=== PATIENT | female | born 1970 | race Caucasian/White ===

== ENCOUNTER 2022-06-04 08:23 | Outpatient (CLI) | payer BC, SELFPAY | END 2022-06-04 08:24 | disposition home or self-care (01) | LOC: OP CLINIC 08:25 | PROVIDERS: Visit Provider Surgery | DX: Z12.11 Encounter for screening for malignant neoplasm of colon (principal); K63.5 Polyp of colon | CPT/HCPCS: 45385; 88305; 99153; J2250; J3010 ==

== ENCOUNTER 2022-06-04 11:15 | Outpatient (CLI) | payer BC, SELFPAY ==
--- NOTE | 2022-06-04 13:00 | CRLHL7_ITS ---
For Patients: As a result of the Century Cures Act, medical imaging exams and procedure reports are released immediately into your electronic medical record. You may view this report before your referring provider. If you have questions, please contact your health care provider. BILATERAL SCREENING MAMMOGRAM WITH COMPUTER-AIDED DETECTION AND TOMOSYNTHESIS TECHNIQUE: CC, MLO and Implant-displaced views were obtained. These mammographic images have been obtained using full-field digital technique. These mammographic images were interpreted with the benefit of computer-aided detection. Breast Tomosynthesis was used in this interpretation. COMPARISON FILM: 02/21/21, 02/16/20, 07/29/17. FINDINGS: The breasts are heterogeneously dense, which may obscure small masses IMPRESSION: There is no radiographic evidence for malignancy. ASSESSMENT: BI-RADS Category 2: Benign RECOMMENDATION: Routine screening mammogram in 1 year. A lay language report of this examination will be provided to the patient. Beatriz Sanders M.D. Diagnostic/Breast Radiologist [email or web address] Transcribed: 11:59 [email or web address] [email or web address]/Dictated by: Beatriz Sanders MD @ 06/05/2022 8:22:00 AM (Electronically Signed)
== END 2022-06-04 11:16 | disposition home or self-care (01) ==
PROVIDERS: PCP Physician Assistant Medical; Visit Provider Physician Assistant Medical
DX: Z12.31 Encounter for screening mammogram for malignant neoplasm of breast (principal); R92.2 Inconclusive mammogram
CPT/HCPCS: 45385; 77063; 77067; 88305; 99153; J2250; J3010

== ENCOUNTER 2022-12-19 10:27 | Outpatient (CLI) | payer OTHER, SELFPAY | END 2022-12-19 10:28 | disposition home or self-care (01) | LOC: NFLDREF 12-21 05:54 | PROVIDERS: PCP Physician Assistant Medical; Referring Provider Physician Assistant Medical; Visit Provider Physician Assistant Medical | DX: N39.0 Urinary tract infection, site not specified (principal); N30.00 Acute cystitis without hematuria | CPT/HCPCS: 87086; 87186 ==

== ENCOUNTER 2023-06-06 08:56 | Outpatient (CLI) | payer OTHER, SELFPAY ==
[2023-06-06 15:34] LABS: Chlamydia DNA Amplified* NOT DETECTED (No Detected); GC DNA Amplified* NOT DETECTED (No Detected)
== END 2023-06-06 08:57 | disposition home or self-care (01) ==
PROVIDERS: PCP Physician Assistant Medical; Visit Provider Physician Assistant Medical
DX: Z00.00 Encounter for general adult medical examination without abnormal findings (principal); N89.8 Other specified noninflammatory disorders of vagina; E66.9 Obesity, unspecified; E78.5 Hyperlipidemia, unspecified; F41.9 Anxiety disorder, unspecified; Z13.0 Encounter for screening for diseases of the blood and blood-forming organs and certain disorders involving the immune mechanism; Z13.1 Encounter for screening for diabetes mellitus; Z13.6 Encounter for screening for cardiovascular disorders; Z13.21 Encounter for screening for nutritional disorder; Z11.59 Encounter for screening for other viral diseases; Z11.3 Encounter for screening for infections with a predominantly sexual mode of transmission
CPT/HCPCS: 80053; 80061; 82306; 83520; 84439; 84443; 84481; 86703; 86803; 87086; 87491; 87591

== ENCOUNTER 2023-06-10 14:42 | Outpatient (CLI) | payer OTHER, SELFPAY ==
--- NOTE | 2023-06-10 15:00 | US_ITS ---
Patient: LAVERNE NOGUERA Facility:?[facility] Patient ID:?[id number] Site Patient ID:?[id number]. Site :?1970 Study:?US-Abdomen RUQ-06/10/2023 3:31:10 PM Ordering Physician:?ANDREZ BALTAZAR Final Report: INDICATION: Elevated liver enzymes TECHNIQUE: Ultrasound abdomen limited. Sonographic images of the right upper quadrant were obtained using clemons-scale and color Doppler images. COMPARISON: None FINDINGS: Liver: Normal in size and echotexture. No masses. No intrahepatic biliary dilatation. Normal flow direction in the portal vein. Gallbladder: No stones or sludge. Normal wall thickness. No pericholecystic fluid. Common bile duct: 6 mm. Pancreas: Normal. Right kidney: Normal in size. Normal echotexture and cortex. No suspicious masses, stones, or hydronephrosis. Vasculature: Proximal abdominal aorta and IVC are normal. IMPRESSION: Unremarkable right upper quadrant ultrasound. Dictated by Domenic Mg MD @ 06/11/2023 10:35:55 AM Signed by:?Domenic Mg MD @06/11/2023 10:35:55 AM (Electronic Signature)
== END 2023-06-10 14:43 | disposition home or self-care (01) ==
PROVIDERS: PCP Physician Assistant Medical; Visit Provider Physician Assistant Medical
DX: R79.89 Other specified abnormal findings of blood chemistry (principal)
CPT/HCPCS: 76705

== ENCOUNTER 2023-06-26 14:39 | Outpatient (CLI) | payer OTHER, SELFPAY ==
--- NOTE | 2023-06-26 15:00 | MM_ITS ---
Patient: LAVERNE NOGUERA Facility:?[facility] Patient ID:?[id number] Site Patient ID:?[id number]. Site :?1970 Study:?XRay-Breast Bilateral 3D W/CAD-06/26/2023 3:13:00 PM Ordering Physician:?Coral Arriola Final Report: BILATERAL SCREENING MAMMOGRAM WITH COMPUTER-AIDED DETECTION TECHNIQUE: CC, MLO and Implant displaced views were obtained. These mammographic images have been obtained using full-field digital technique. These mammographic images were interpreted with the benefit of computer-aided detection. COMPARISON FILM: 06/04/22, 02/21/21, 02/16/20. FINDINGS: The breasts are heterogeneously dense, which may obscure small masses. IMPRESSION: There is no radiographic evidence for malignancy. ASSESSMENT: BI-RADS Category 2: Benign RECOMMENDATION: Routine screening mammogram in 1 year. A lay language report of this examination will be provided to the patient. Antonio Patrick M.D. Diagnostic Radiologist [email or web address] DSM/sp R& Transcribed: 1:13 p.m. SP/Dictated by: Antonio Patrick MD @ 06/27/2023 12:16:00 PM Signed by:?Antonio Patrick MD @06/27/2023 3:46:18 PM (Electronic Signature)
== END 2023-06-26 14:40 | disposition home or self-care (01) ==
LOC: MAMMO 14:39
PROVIDERS: PCP Physician Assistant Medical; Visit Provider Physician Assistant Medical
DX: Z12.31 Encounter for screening mammogram for malignant neoplasm of breast (principal); R92.2 Inconclusive mammogram
CPT/HCPCS: 77063; 77067

== ENCOUNTER 2023-08-20 14:58 | Outpatient (CLI) | payer OTHER, SELFPAY ==
--- OUTSIDE RECORDS SUMMARY | 2023-08-24 18:24 | XMS_ITS | Continuity of Care Document ---
Author Organization [address] [address] Insurance Providers Payer Plan Claims Address Claims Phone Policy Number Group Number Relation Employer Guarantor Name Guarantor Guarantor Address Guarantor Phone Blue Cross [id number] Blue Cross [id number] [id number] Self Lin Tiffanie Stan [address] [place] [address] [id number] CIGNA CIGNA tel:[phone] [id number] Self Lin Tiffanie tSan [address] [place] [address] [id number] Problems Condition ICD9 code ICD10 code SNOMED code Start Date End Date S tatus Cough, unspecified R05.9 Final Fever, unspecified R50.9 Final Cough, unspecified R05.9 Admit ting Fever, unspecified R50.9 Admit ting Diarrhea, unspecified R19.7 Ad mitting Frequency of micturition R35.0 Admitting Acute cough R05.1 Admitting Results No Results Allergies, adverse reactions, alerts No known allergies and adverse reactions Medications No administered medications reported Vital Signs No vital signs reported Social History No smoking Hx information available
--- OUTSIDE RECORDS SUMMARY | 2023-08-24 18:24 | XMS_ITS | Clinical Summary ---
Author Organization [facility] Address [place], [place] [address] Care Team Providers Care Medical Esthetician Name Role Phone Nicolasa Arriola PA-C Primary Care Provider [phone] Allergies No known active allergies Medications Medication Sig Dispensed Refills Start Date End Date Status sertraline (ZOLOFT) 25 mg tablet Take 1 tablet by mouth once daily. 0 02/08/2017 Active glycopyrrolate (ROBINUL) 1 mg tablet 06/25/2018 Act christopher Active Problems Problem Noted Date Diagnosed Date SANDRA 04/08/2018 AHI-5 06/26/2018 Social History Tobacco Use Types Packs/Day Years Used Date Smoking Tobacco: Former Cigarettes Q uit: 03/11/2006 Smokeless Tobacco: Never Tobacco Cessation:Counseling Given: Yes Alcohol Use Standard Drinks/Week Comments Yes 0 (1 standard drink = 0.6 oz pur e alcohol) occasional Sex and Gender Information Value Date Recorded Sex Assigned at Not on file Gender Identity Not on file Sexual Orientation Not on file Obstetrics History Last Filed Vital Signs Vital Sign Reading Time Taken Comments Blood Pressure 114/78 06/26/2018 8:55 AM CDT Pulse 71 06/26/2018 8:55 AM CDT Temperature 37.4 ??C (99.4 ??F) 06/26/2018 8:54 AM CD T Respiratory Rate 14 02/08/2017 8:52 AM PER DIEM Oxygen Saturation 95% 06/26/2018 8:54 AM CDT Inhaled Oxygen Concentration - - Weight 107.2 kg (236 lb 6.4 oz) 06/26/2018 8:54 AM CDT Height 171 cm (5' 7.32) 06/26/2018 8:54 AM CDT Body Mass Index 36.67 06/26/2018 8:54 AM CDT Plan of Treatment Health Maintenance Due Date Last Done Comments Tdap 09/14/1983 Depression screening for age 12+ 1984 HIV for age 15-65 09/14/1987 Hepatitis C screening for ag e 18-79 1990 Tetanus booster 1992 Colonoscopy through age 75 2017 Lipids for age 45-75 2017 Mammogram for age 45-75 2017 BMI (ht and wt on same day) for age 18+ 06/27/2019 06/26/2018 Pap test for age 21-65 02/12/2021 8, 02/23/2010, 02/23/2010 Zoster (shingles) series for age 50+ (1 of 2) 2022 COVID-19 vaccine series (2022- season) 2022 Influenza for age 50-64 11/10/2023 Pneumococcal series for age 6-64 Aged Out No longer eligible b ased on patient's age to complete this topic Procedures Procedure Name Priority Date/Time Associated Diagnosis Comments DECK OFFICER THIN PREP PAP SCREEN IMAGED Routine 02/12/2018 8:45 AM PER DIEM from Last 3 Months or Most Recently Relevant to Health Maintenance Results * DECK OFFICER THIN PREP PAP SCREEN IMAGED (02/12/2018 8:45 AM PER DIEM) Case Report Gynecologic Cytology Report ? Case: [id number] ? Authorizing Provider: ??Nicolasa Arriola PA-C ?Collected: ? 02/12/2018 0845 ? First Screen: ?Crow Bhatti ?Received: ?02/14/2018 1608 ? Specimen: ?DECK OFFICER ThinPrep Vial Screening, Cervical/Vaginal ? 02/27/2018 1:29 PM [facility] ENTRAL LABORATORY INTERPRETATION/ RESULT NEGATIVE FOR INTRAEPITHELIAL LESION OR MALIGNANCY (NIL) (none) 02/27/2018 1:29 PM [facility] ENTRAL LABORATORY IMEN ADEQUACY Satisfactory for evaluation No endocervical component seen 02/27/2018 1:29 PM [facility] ENTRAL LABORATORY HPV REQUEST HPV if ASCUS 02/27/2018 1:29 PM [facility] ENTRAL LABORATORY Date of LMP 02/27/2018 1:29 PM [facility] ENTRAL LABORATORY Comment:Hysterectomy Last Pap Date 02/23/2010 02/27/2018 1:29 PM PER DIEM [facility] ENTRAL LABORATORY Last Pap Result 8 1:29 PM [facility] ENTRAL LABORATORY Comment:normal Automated Review Successful 02/27/2018 1:29 PM [facility] ENTRAL LABORATORY Comment:Specimen processed s uccessfully by automated deposition reporter device, ThinPrep Imaging System, [employer] Note The pap test is a screening technique, not a diagnostic procedure. ??It is used primarily to screen for squamous cancers and precursor lesions. ??Published studies have shown that it is subject to both false negative and false positive results. ??The pap test should not be used as the sole means to diagnose or exclude pre-malignant and malignant lesions. Cytology is screened and interpreted at [facility], Central Laboratory - [address], [place] [address] and [facility] - [address]; [place] [address] and [facility] - [address]; [place] [address] and [facility] [address]; [place] [address] 02/27/2018 1:29 PM [facility] ENTRAL LABORATORY Other (Cervical/Vagina l) 02/12/2018 8:45 AM PER DIEM 02/14/2018 4:08 PM PER DIEM Nicolasa Arriola PA-C PATHOLOGY/CYTOLOGY [facility] LABORATORY-CENTRAL LABORATORY [address] [place] [address], [place] from Last 3 Months or Most Recently Relevant to Health Maintenance Care Teams Medical Esthetician Relationship Specialty Start Date End Date Nicolasa Arriola PA-C [address] [place] [address] PCP - General Emergency Medicine 06/26/18
== END 2023-08-20 14:59 | disposition home or self-care (01) ==
LOC: NFLDREF 08-24 18:23
PROVIDERS: PCP Physician Assistant Medical; Referring Provider Physician Assistant Medical; Visit Provider Physician Assistant
DX: R35.0 Frequency of micturition (principal); R05.9 Cough, unspecified; R50.9 Fever, unspecified; R19.7 Diarrhea, unspecified; R05.1 Acute cough
CPT/HCPCS: 87086

== ENCOUNTER 2023-09-04 14:44 | Outpatient (CLI) | payer OTHER, SELFPAY ==
--- OUTSIDE RECORDS SUMMARY | 2023-09-04 14:48 | XMS_ITS | Continuity of Care Document ---
Author Organization [address] [address] Insurance Providers Payer Plan Claims Address Claims Phone Policy Number Group Number Relation Employer Guarantor Name Guarantor Guarantor Address Guarantor Phone Blue Cross [id number] Blue Cross [id number] [id number] Self Lin Tiffanie Stan [address] [place] [address] [id number] CIGNA CIGNA tel:[phone] [id number] Self Lin Tiffanie Stan [address] [place] [address] [id number] Problems Condition ICD9 code ICD10 code SNOMED code Start Date End Date S tatus Cough, unspecified R05.9 Final Fever, unspecified R50.9 Final Cough, unspecified R05.9 Admit ting Fever, unspecified R50.9 Admit ting Diarrhea, unspecified R19.7 Ad mitting Frequency of micturition R35.0 Admitting Acute cough R05.1 Admitting Cough, unspecified R05.9 Final Fever, unspecified R50.9 Final Diarrhea, unspecified R19.7 Fi nal Frequency of micturition R35.0 Final Acute cough R05.1 Final Results No Results Allergies, adverse reactions, alerts No known allergies and adverse reactions Medications No administered medications reported Vital Signs No vital signs reported Social History No smoking Hx information available
--- OUTSIDE RECORDS SUMMARY | 2023-09-04 14:48 | XMS_ITS | Clinical Summary ---
Author Organization [facility] Address [place], [place] [address] Care Team Providers Care Wedding Day Coordinator Name Role Phone Nicolasa Arriola PA-C Primary Care Provider [phone] Allergies No known active allergies Medications Medication [...] T Respiratory Rate 14 02/08/2017 8:52 AM MACHINIST APPRENTICE Oxygen Saturation 95% 06/26/2018 8:54 AM CDT [...] Procedure Name Priority Date/Time Associated Diagnosis Comments CORRECTIONAL GUARD THIN PREP PAP SCREEN IMAGED Routine 02/12/2018 8:45 AM MACHINIST APPRENTICE from Last 3 Months or Most Recently Relevant to Health Maintenance Results * CORRECTIONAL GUARD THIN PREP PAP SCREEN IMAGED (02/12/2018 8:45 AM MACHINIST APPRENTICE) Case Report Gynecologic Cytology Report ? Case: [id number] ? Authorizing Provider: ??Nicolasa Arriola PA-C ?Collected: ? 02/12/2018 0845 ? First Screen: ?Crow Bhatti ?Received: ?02/14/2018 1608 ? Specimen: ?CORRECTIONAL GUARD ThinPrep Vial Screening, Cervical/Vaginal ? 02/27/2018 1:29 PM [facility] ENTRAL LABORATORY INTERPRETATION/ RESULT NEGATIVE FOR INTRAEPITHELIAL LESION OR MALIGNANCY (NIL) (none) 02/27/2018 1:29 PM [facility] ENTRAL LABORATORY IMEN ADEQUACY Satisfactory for evaluation No endocervical component seen 02/27/2018 1:29 PM [facility] ENTRAL LABORATORY HPV REQUEST HPV if ASCUS 02/27/2018 1:29 PM [facility] ENTRAL LABORATORY Date of LMP 02/27/2018 1:29 PM [facility] ENTRAL LABORATORY Comment:Hysterectomy Last Pap Date 02/23/2010 02/27/2018 1:29 PM MACHINIST APPRENTICE [facility] ENTRAL LABORATORY Last Pap Result 8 1:29 PM [facility] ENTRAL LABORATORY Comment:normal Automated Review Successful 02/27/2018 1:29 PM [facility] ENTRAL LABORATORY Comment:Specimen processed s uccessfully by automated accounting manager cpa device, ThinPrep Imaging System, [employer] Note The pap test is a [...] lesions. Cytology is screened and interpreted at [facility], Central Laboratory - [address], [place] [address] and [facility] - [address]; [place] [address] and [facility] - [address]; [place] [address] and [facility] [address]; [place] [address] 02/27/2018 1:29 PM [facility] ENTRAL LABORATORY Other (Cervical/Vagina l) 02/12/2018 8:45 AM MACHINIST APPRENTICE 02/14/2018 4:08 PM MACHINIST APPRENTICE Nicolasa Arriola PA-C PATHOLOGY/CYTOLOGY [facility] LABORATORY-CENTRAL LABORATORY [address] [place] [address], [place] from Last 3 Months or Most Recently Relevant to Health Maintenance Care Teams Wedding Day Coordinator Relationship Specialty Start Date End Date Nicolasa Arriola PA-C [address] [place] [address] PCP - General Emergency Medicine 06/26/18
== END 2023-09-04 14:45 | disposition home or self-care (01) ==
LOC: LKVREF 14:46
PROVIDERS: PCP Physician Assistant Medical; Visit Provider Physician Assistant Medical
DX: Z01.818 Encounter for other preprocedural examination (principal); R79.89 Other specified abnormal findings of blood chemistry; E78.5 Hyperlipidemia, unspecified; E66.9 Obesity, unspecified
CPT/HCPCS: 80053; 80061; 80076

== ENCOUNTER 2024-07-17 07:58 | Outpatient (CLI) | payer OTHER, SELFPAY ==
--- NOTE | 2024-07-17 08:15 | CRLHL7_ITS ---
For Patients: As a result of the Century Cures Act, medical imaging exams and procedure reports are released immediately into your electronic medical record. You may view this report before your referring provider. If you have questions, please contact your health care provider. INDICATION: BILATERAL SCREENING MAMMOGRAM, ASYMPTOMATIC 53 Y/O FEMALE COMPARISON: 06/26/2023, 06/04/2022, 02/21/2021 TECHNIQUE: CC and MLO views were obtained. These mammographic images have been obtained using full-field digital technique. These mammographic images were interpreted with the benefit of computer aided detection and tomosynthesis. BREAST COMPOSITION: The breasts are heterogeneously dense, which may obscure small masses. FINDINGS: No suspicious findings. ASSESSMENT: BI-RADS 2 Benign RECOMMENDATION: Annual screening mammogram. A lay language report of this examination will be provided to the patient. Dictated by: Antonio Patrick MD @ 07/17/2024 09:13:23 (Electronically Signed)
== END 2024-07-17 07:59 | disposition home or self-care (01) ==
LOC: MAMMO 07:59
PROVIDERS: PCP Physician Assistant Medical; Visit Provider Physician Assistant Medical
DX: Z12.31 Encounter for screening mammogram for malignant neoplasm of breast (principal); R92.333 Mammographic heterogeneous density, bilateral breasts; Z98.82 Breast implant status
CPT/HCPCS: 77063; 77067

== ENCOUNTER 2024-11-24 08:17 | Outpatient (CLI) | payer OTHER, SELFPAY ==
[2024-11-24 13:55] LABS: Albumin* 4.4 g/dL (3.3-5.0); Chloride* 103 mmol/L (96-114)
[2024-11-24 13:56] LABS: Potassium* 4.7 mmol/L (3.6-5.1); Sodium* 140 mmol/L (135-149)
[2024-11-24 13:58] LABS: Alanine Aminotransferase* 19 U/L (4-35); Anion Gap 6 mEq/L (7-15); Aspartate Amino Transferase* 24 U/L (12-35); Blood Urea Nitrogen* 15 mg/dL (7-30); Carbon Dioxide* 31 mmol/L (20-32); Creatinine* 0.7 mg/dL (0.5-1.5); Estimated Glomerular Filt Rate 104 ml/min
[2024-11-24 13:59] LABS: Alkaline Phosphatase* 64 U/L (40-150); Bilirubin Total* 0.7 mg/dL (0.1-1.5); Calcium* 9.8 mg/dL (8.4-10.6); Glucose* 107 mg/dL (60-115); Total Protein* 7.2 g/dL (6.0-8.3)
[2024-11-24 14:17] LABS: Free T4 Free Thyroxine* 1.10 ng/dL (0.70-1.85)
[2024-11-24 14:48] LABS: Vitamin B12* 343 pg/mL (243-894)
[2024-11-26 00:47] LABS: Folate, Serum 13.3 ng/mL (>=5.9)
[2024-11-26 00:54] LABS: Estradiol Premenol Female <20 pg/mL
[2024-11-26 04:08] LABS: Free T3 2.9 pg/mL (2.5-4.3)
[2024-11-26 04:30] LABS: Follicle Stimulating Hormone 51.6 IU/L
== END 2024-11-24 08:18 | disposition home or self-care (01) ==
LOC: NPINS 08:18
PROVIDERS: PCP Physician Assistant Medical; Visit Provider Registered Nurse Maternal Newborn
DX: N95.1 Menopausal and female climacteric states (principal); E34.9 Endocrine disorder, unspecified; Z13.0 Encounter for screening for diseases of the blood and blood-forming organs and certain disorders involving the immune mechanism
CPT/HCPCS: 80053; 82607; 82670; 82746; 83001; 84207; 84439; 84443; 84481; 86376

== ENCOUNTER 2025-01-06 07:36 | Outpatient (CLI) | payer OTHER, SELFPAY ==
--- NOTE | 2025-01-06 08:00 | CRLHL7_ITS ---
For Patients: As a result of the Cures Act, medical imaging exams and procedure reports are released immediately into your electronic medical record. You may view this report before your referring provider. If you have questions, please contact your health care provider. INDICATION: Enlarged adenoids. Shortness breath. COMPARISON: None. TECHNIQUE: CT soft tissue neck with IV contrast. Isovue 370, 122 cc IV. FINDINGS: Normal bilateral parotid and submandibular glands. 15 mm low-attenuation nodule of the right thyroid lobe. Scattered small normal-sized cervical lymph nodes bilaterally. No supraclavicular superior mediastinal adenopathy. Nasopharynx and oropharynx are clear. No inflammation within the paravertebral fat pads or retropharyngeal space. There is enlargement of the bilateral tonsillar pillars but with no evidence of significant inflammatory change. No evidence of peritonsillar abscess. Calcified tonsilliths on the right. Normal thickness of the epiglottis. Normal glottis is metric vocal cords. Lung apices are clear. Normal alignment of the cervical spine. No prevertebral soft tissue swelling. Visualized paranasal sinuses mastoid air cells are clear. IMPRESSION: 1. No adenopathy 2. Enlargement of the bilateral tonsillar pillars. No inflammatory change. No peritonsillar abscess. 3. Remaining deep soft tissues of the neck are normal Please note that all CT scans at this facility use dose modulation, iterative reconstruction, and/or weight-based dosing when appropriate to reduce radiation dose to as low as reasonably achievable. Dictated by Santos Herring MD @ 01/06/2025 10:04:48 AM (Electronically Signed)
== END 2025-01-06 07:37 | disposition home or self-care (01) ==
PROVIDERS: PCP Physician Assistant Medical; Visit Provider Physician Assistant
DX: R09.82 Postnasal drip (principal); J35.2 Hypertrophy of adenoids; E04.1 Nontoxic single thyroid nodule; J35.1 Hypertrophy of tonsils
CPT/HCPCS: 70491; Q9967

== ENCOUNTER 2025-01-08 13:51 | Outpatient (CLI) | payer OTHER, SELFPAY ==
--- NOTE | 2025-01-08 13:45 | CRLHL7_ITS ---
For Patients: As a result of the Century Cures Act, medical imaging exams and procedure reports are released immediately into your electronic medical record. You may view this report before your referring provider. If you have questions, please contact your health care provider. INDICATION: nontoxic single thyroid nodule COMPARISON: none TECHNIQUE: Dao scale and color Doppler images were acquired of the thyroid gland. FINDINGS: The thyroid gland demonstrates normal uniform echogenicity and has a smooth outer contour. The right lobe measures 6.2 x 1.8 x 2.5 cm and the left lobe measures 5.7 x 1.6 x 1.7 cm in size. Isthmus measures 3 millimeters. Solid nodule right thyroid lobe upper pole measures 2.3 x 1.7 x 1.9 cm, TR 4. The color Doppler images demonstrate normal vascularity. There is no evidence of cervical lymphadenopathy or parathyroid mass. IMPRESSION: 2.3 cm TR 4 nodule right thyroid lobe. FNA recommended. Dictated by Antonio Patrick MD @ 01/08/2025 2:30:44 PM (Electronically Signed)
== END 2025-01-08 13:52 | disposition home or self-care (01) ==
LOC: US 13:52
PROVIDERS: PCP Physician Assistant Medical; Visit Provider Physician Assistant
DX: E04.1 Nontoxic single thyroid nodule (principal)
CPT/HCPCS: 76536

== ENCOUNTER 2025-01-21 08:43 | Outpatient (CLI) | payer OTHER, SELFPAY | END 2025-01-21 08:44 | disposition home or self-care (01) | LOC: NFLDREF 01-26 21:25 | PROVIDERS: PCP Physician Assistant Medical; Referring Provider Physician Assistant Medical; Visit Provider Physician Assistant Medical | DX: Z00.00 Encounter for general adult medical examination without abnormal findings (principal) | CPT/HCPCS: 80061; 81291; 86140; 87086 ==

== ENCOUNTER 2025-02-01 14:44 | Outpatient (CLI) | payer OTHER, SELFPAY ==
--- NOTE | 2025-02-16 09:30 | W.PM.SLEEP ---
Sleep Study Details Details Interpreting Provider: Stacey Date of Sleep Study: 02/01/25 Sleep Study Details: STUDY TYPE:? Home unattended ? BMI:? 39.15 ORDERING PROVIDER:? Stacey INDICATION:? Concern for sleep apnea ? SLEEP SUMMARY:? 365 minutes monitored RESPIRATORY SUMMARY:? AHI 25.7 Low oxygen 74 7.5% of study oxygen less than 90% PERIODIC LIMB MOVEMENTS OF SLEEP:? Not recorded CARDIAC:? Range 59-109, mean 73.9 beats per minute IMPRESSION:? Moderate obstructive sleep apnea RECOMMENDATION: Treatment options include CPAP dental appliance weight loss and/or airway expansion surgery. Weight loss is recommended.
== END 2025-02-01 14:45 | disposition home or self-care (01) ==
LOC: SLEEP 14:45
PROVIDERS: PCP Physician Assistant Medical; Visit Provider Physician Assistant
DX: G47.33 Obstructive sleep apnea (adult) (pediatric) (principal)
CPT/HCPCS: 95806

== ENCOUNTER 2025-02-03 11:32 | Outpatient (CLI) | payer OTHER, SELFPAY ==
--- NOTE | 2025-02-03 12:00 | CRLHL7_ITS ---
For Patients: As a result of the Century Cures Act, medical imaging exams and procedure reports are released immediately into your electronic medical record. You may view this report before your referring provider. If you have questions, please contact your health care provider. INDICATION: 54-year-old female. Incidentally noted right thyroid nodule on a CT of the neck done January 06, 2025. A solid nodule was described on a thyroid ultrasound done January 08, 2025 measuring 2.3 x 1.7 x 1.9 cm. Ultrasound-guided fine-needle aspiration/biopsy was recommended/ordered. PROCEDURE: Informed consent was obtained. Benefits and risks were discussed. Risks included pain, bleeding, infection, and the possibility of an unsuccessful or nondiagnostic procedure. The patient agreed to proceed. Utilizing sterile technique and 1% Xylocaine for local anesthetic, a series of six 25-gauge needles were advanced into the solid 2.3 x 1.7 x 1.9 cm nodule in the mid upper right thyroid lobe. Toward the end of the examination, the needle tip was more difficult to visualize in the nodule given the presumed small amount of intramuscular hemorrhage at the time of needle placement. No immediate complications. The patient is asymptomatic after the procedure. No subsequent imaging. Final pathology is pending. IMPRESSION: Technically successful fine-needle aspiration/biopsy of a dominant solid nodule in the right thyroid lobe. KRIS RAMSAY M.D. Diagnostic/Nuclear Medicine Radiologist [email or web address] Transcribed: 2:[address]/Dictated by: Kris Ramsay MD @ 02/03/2025 1:13:00 PM (Electronically Signed)
== END 2025-02-03 11:33 | disposition home or self-care (01) ==
PROVIDERS: PCP Physician Assistant Medical; Visit Provider Surgery
DX: E04.1 Nontoxic single thyroid nodule (principal)
CPT/HCPCS: 10005; 76942

== ENCOUNTER 2025-02-15 13:00 | Outpatient (CLI) | payer OTHER, SELFPAY ==
--- NOTE | 2025-02-15 13:00 | CRLHL7_ITS ---
For Patients: As a result of the Century Cures Act, medical imaging exams and procedure reports are released immediately into your electronic medical record. You may view this report before your referring provider. If you have questions, please contact your health care provider. INDICATION: hypertension TECHNIQUE: Grayscale, color Doppler and spectral Doppler evaluation of the kidneys and renal arteries performed. COMPARISON: None available FINDINGS: BILATERAL RENAL ARTERY DUPLEX ULTRASOUND ABDOMINAL AORTA: Peak systolic velocity = 106 cm/s. No aortic aneurysm. RIGHT KIDNEY: 14.0 cm in length. There is no hydronephrosis. Peak systolic velocity = 149 cm/second, the origin of the right renal artery and proximal right renal artery are not visualized due to overlying bowel gas. Renal artery to aortic peak systolic velocity ratio = 1.4 Resistive indices: 0.6 Renal vein = patent LEFT KIDNEY: 13.8 cm in length. There is no hydronephrosis. Peak systolic velocity = the left renal artery is not well evaluated due to overlying bowel gas. Renal artery to aortic peak systolic velocity ratio = incompletely evaluated Resistive indices: 0.6 Renal vein = patent IMPRESSION: Limited evaluation due to overlying bowel gas particularly on the left. No evidence of renal artery stenosis involving the right renal artery. Dictated by Antonio Patrick MD @ 02/15/2025 3:01:46 PM (Electronically Signed)
== END 2025-02-15 13:01 | disposition home or self-care (01) ==
LOC: US 13:01
PROVIDERS: PCP Physician Assistant Medical; Visit Provider Physician Assistant Medical
DX: I10 Essential (primary) hypertension (principal); N28.1 Cyst of kidney, acquired
CPT/HCPCS: 76775; 93975

== ENCOUNTER 2025-02-23 14:54 | Outpatient (CLI) | payer OTHER, SELFPAY ==
--- NOTE | 2025-02-23 15:00 | CRLHL7_ITS ---
For Patients: As a result of the Century Cures Act, medical imaging exams and procedure reports are released immediately into your electronic medical record. You may view this report before your referring provider. If you have questions, please contact your health care provider. Indication: HYPERTENSION, RENAL ARTERY STENOSIS Technique: CT Abdomen/Pelvis Angio RENAL ARTERY ANGIO, pre and postcontrast CT abdomen and pelvis. 150 cc Isovue 370 intravenous contrast. Postcontrast images in the arterial and 60 second delayed phases. Please note that all CT scans at this facility use dose modulation, iterative reconstruction, and/or weight-based dosing when appropriate to reduce radiation dose to as low as reasonably achievable. Comparison: Ultrasound 02/15/2025 Findings: Lung bases are clear. No urinary tract calculi on the noncontrast images. After the administration of contrast, the renal arteries perfuse normally. Single renal arteries are present bilaterally. No stenosis. No evidence of fibromuscular dysplasia. 60 second delayed images show benign right renal cysts which measure up to 1.6 cm. No suspicious mass. Normal liver, gallbladder, spleen, pancreas, adrenal glands and bladder. No pelvic mass. Postop changes hysterectomy. No bowel obstruction, free air, free fluid or abscess. No adenopathy. No fracture. Impression: No evidence of renal artery stenosis. Please note that all CT scans at this facility use dose modulation, iterative reconstruction, and/or weight-based dosing when appropriate to reduce radiation dose to as low as reasonably achievable. Dictated by Antonio aPtrick MD @ 02/25/2025 10:48:01 AM (Electronically Signed)
== END 2025-02-23 14:55 | disposition home or self-care (01) ==
LOC: CT 14:54
PROVIDERS: PCP Physician Assistant Medical; Visit Provider Physician Assistant Medical
DX: I10 Essential (primary) hypertension (principal); Z03.89 Encounter for observation for other suspected diseases and conditions ruled out; N28.1 Cyst of kidney, acquired
CPT/HCPCS: 74174; Q9967

== ENCOUNTER 2025-02-26 11:04 | Outpatient (CLI) | payer OTHER, SELFPAY ==
[2025-03-01 17:23] LABS: Estradiol Premenol Female 28.4 pg/mL
[2025-03-01 23:24] LABS: Progesterone, HPLC-MS/MS 0.19 ng/mL
[2025-03-04 04:17] LABS: Testosterone, Free LC-MS/MS 2.1 pg/mL (0.6-3.8); Testosterone, LC-MS/MS 11 ng/dL (9-55)
== END 2025-02-26 11:05 | disposition home or self-care (01) ==
LOC: NPINS 11:05
PROVIDERS: PCP Physician Assistant Medical; Visit Provider Registered Nurse Maternal Newborn
DX: N95.1 Menopausal and female climacteric states (principal)
CPT/HCPCS: 82670; 84144; 84270; 84402; 84403